=== PATIENT | male | born 1970 | race African-American/Black ===

== ENCOUNTER 2025-08-28 00:33 | Inpatient (IN) | payer OTHER ==
[~2025-08-28] VITALS: Ht 175.3 cm; Wt 95.3 kg
[2025-08-28 00:36] VITALS: O2SAT 94
[2025-08-28] MEDS: SODIUM CHLORIDE 0.9% (SEPSIS BOLUS) IV ONE (01:08)
[2025-08-28 01:16] LABS: BASOPHILS % 1.4 % (0.0-2.0); EOSINOPHILS % 3.4 % (0.0-5.0); HEMATOCRIT. 36.0 % (42.0-52.0); HEMOGLOBIN. 11.7 g/dL (14.0-18.0); LYMPHOCYTES % 12.7 % (20.0-50.0); MEAN PLATELET VOLUME 8.6 fl (7.4-10.4); MONOCYTES % 9.4 % (2.0-8.0); NEUTROPHILS % 73.1 % (40.0-76.0); PLATELET 257 x1000/uL (130-400); RED BLOOD CELL COUNT 4.19 mill/uL (4.7-6.1); RED CELL DISTRIBUTION WIDTH 14.7 % (11.6-14.6)
[2025-08-28] MEDS: PIPERACILLIN/TAZO 3.375G/50ML 50 ML IV ONE (01:16)
[2025-08-28 01:24] LABS: BG BASE EXCESS -2.8 mmol/L (-2.0-3.0); BG CARBOXYHEMOGLOBIN 0.2 % (0.5-1.5); BG DEOXYHEMOGLOBIN 1.5 % (0.0-5.0); BG FLOW(L/min) 2.00 L/min; BG FRACTION INSPIRED OXYGEN 28; BG HCO3 ACT 22.0 mmol/L (21.0-28.0); BG METHEMOGLOBIN 0.3 % (0.5-1.5); BG OXYGEN SATURATION 98.5 % (94.0-98.0); BG OXYHEMOGLOBIN 98.0 % (94.0-98.0); BG PCO2 38.2 mmHg (35.0-48.0); BG PH 7.378 (7.350-7.450); BG PO2 128.2 mmHg (83.0-108.0); BG SAMPLE SITE RIGHT RADIAL; BG TOTAL HEMOGLOBIN 11.0 g/dL (13.5-17.5); BG VENT MODE NASAL CANNULA
[2025-08-28 01:26] LABS: INR 1.0
[2025-08-28 01:29] LABS: CREATININE 3.0 mg/dL (0.6-1.3)
[2025-08-28 01:30] LABS: TROPONIN I HIGH SENSITIVITY 18 ng/L (3.0-53); UREA NITROGEN BLOOD 19 mg/dL (9-23)
[2025-08-28 01:31] LABS: ASPARTATE AMINOTRANSFERASE 27 IU/L (<34)
[2025-08-28 01:32] LABS: BILIRUBIN DIRECT < 0.1 mg/dL (<=3.0); BILIRUBIN TOTAL 0.2 mg/dL (0.1-1.0); PROTEIN TOTAL 8.2 g/dL (6.0-8.3)
[2025-08-28] MEDS: VANCOMYCIN 1G PREMIX 200 ML IV ONE (01:35)
[2025-08-28 03:38] LABS: TROPONIN I HIGH SENSITIVITY 24 ng/L (3.0-53)
[2025-08-28 04:40] VITALS: BP 150/76; PULSE 91; RESP 16; TEMP 36.9; O2SAT 100
[2025-08-28] MEDS ORDERED: IPRATROPIUM/ALBUTEROL 0.5-3(2.5)MG/3ML NEB HHN PRN (05:00)
[2025-08-28] MEDS ORDERED: DEXTROSE 50% WATER 50ML SYRINGE IV PRN (05:00)
[2025-08-28] MEDS ORDERED: DOCUSATE SODIUM 100MG CAPSULE PO PRN (05:00)
[2025-08-28] MEDS ORDERED: ACETAMINOPHEN 325MG TABLET PO PRN ×2 (05:00)
[2025-08-28] MEDS ORDERED: GUAIFENESIN 200MG/10ML SUGAR FREE UDC PO PRN (05:00)
[2025-08-28] MEDS ORDERED: MAGNESIUM/ALUMINUM HYDROXIDE/SIMETHICONE 30ML UDC PO PRN (05:00)
[2025-08-28] MEDS ORDERED: CLONIDINE 0.1MG TABLET PO PRN (05:00)
[2025-08-28] MEDS ORDERED: ONDANSETRON HCL 4MG/2ML INJ IV PRN (05:00)
[2025-08-28 05:10] VITALS: BP 150/76; PULSE 91; RESP 16; TEMP 36.974
[2025-08-28] MEDS ORDERED: LOSA25TA26 PO (05:11)
[2025-08-28] MEDS ORDERED: ATOR40TA70 PO (05:11)
[2025-08-28] MEDS ORDERED: AMLO5TAB88 PO (05:11)
[2025-08-28 06:12] LABS: CLARITY URINE CLEAR (CLEAR); COLOR URINE YELLOW (YELLOW); GLUCOSE URINE NEGATIVE (NEGATIVE); KETONES URINE NEGATIVE (NEGATIVE); LEUKOCYTE ESTERASE URINE NEGATIVE (NEGATIVE); NITRITE URINE NEGATIVE (NEGATIVE); OCCULT BLOOD URINE NEGATIVE (NEGATIVE); PH URINE 7.0 (4.5-8.0); PROTEIN URINE 1+ (NEGATIVE); SPECIFIC GRAVITY URINE 1.007 (1.005-1.030); UROBILINOGEN URINE 0.2 E.U./dL (0.2-1.0)
[2025-08-28] MEDS: INSULIN LISPRO 100 UNITS/ML SUBCUT SCH ×2 (06:28→06:40)
[2025-08-28] MEDS: BLOOD SUGAR DIAGNOSTIC STRIP TEST SCH (06:40)
[2025-08-28 07:03] LABS: *AMPHETAMINES SCREEN URINE NEGATIVE (NEGATIVE); *BENZODIAZEPINES SCREEN URINE NEGATIVE (NEGATIVE)
[2025-08-28 07:04] LABS: *BARBITURATES SCREEN URINE NEGATIVE (NEGATIVE); *COCAINE SCREEN URINE NEGATIVE (NEGATIVE); CANNABINOID URINE SCREEN NEGATIVE (NEGATIVE); ECSTASY MDMA SCREEN URINE NEGATIVE (NEGATIVE); METHADONE URINE SCREEN NEGATIVE (NEGATIVE); OPIATES URINE SCREEN NEGATIVE (NEGATIVE); PHENCYCLIDINE URINE SCREEN NEGATIVE (NEGATIVE)
[2025-08-28] MEDS ORDERED: IOHEXOL-350 100 ML BOTTLE ONE (07:13)
[2025-08-28 07:59] LABS: RBC URINE NONE SEEN /hpf (0-2); SQUAMOUS EPITHELIAL CELL URINE FEW /lpf (RARE/1+); WBC URINE 0-2 /hpf (0-2)
[2025-08-28 08:00] VITALS: BP 129/93; PULSE 80; RESP 18; TEMP 36.9; O2SAT 100
[2025-08-28 08:00] LABS: BACTERIA URINE NONE SEEN
[2025-08-28] MEDS: ENOXAPARIN 30MG/0.3ML SYR SUBCUT SCH (09:00)
[2025-08-28] MEDS: ATORVASTATIN CALCIUM 40MG TABLET PO SCH (09:45)
[2025-08-28] MEDS: AMLODIPINE 5MG TABLET PO SCH (09:46)
[2025-08-28 11:12] LABS: CLARITY URINE CLEAR (CLEAR); COLOR URINE YELLOW (YELLOW); GLUCOSE URINE NEGATIVE (NEGATIVE); KETONES URINE NEGATIVE (NEGATIVE); LEUKOCYTE ESTERASE URINE NEGATIVE (NEGATIVE); NITRITE URINE NEGATIVE (NEGATIVE); OCCULT BLOOD URINE NEGATIVE (NEGATIVE); PH URINE 6.0 (4.5-8.0); PROTEIN URINE 1+ (NEGATIVE); SPECIFIC GRAVITY URINE 1.027 (1.005-1.030); UROBILINOGEN URINE 0.2 E.U./dL (0.2-1.0)
[2025-08-28 12:00] VITALS: BP 150/76; PULSE 83; RESP 16; TEMP 36.8; O2SAT 98
[2025-08-28 12:39] LABS: BACTERIA URINE NONE SEEN; RBC URINE NONE SEEN /hpf (0-2); SQUAMOUS EPITHELIAL CELL URINE FEW /lpf (RARE/1+); WBC URINE NONE SEEN /hpf (0-2)
[2025-08-28 14:27] VITALS: BP 150/76; PULSE 83; RESP 16; TEMP 98.2
[2025-08-28] MEDS ORDERED: INSULIN GLARGINE 100 UNITS/ML SUBCUT SCH (22:00)
== END 2025-08-28 15:06 | disposition home or self-care (01) | DRG 304 ==
LOC: ER 00:33 → EDBEDREQ 04:03 → EDBEDREQTM 04:03 → ENRESERV 04:16 → 5WST 04:54
PROVIDERS: ADMIT Hospitalist; ATTEND Hospitalist
DX: I16.0 Hypertensive urgency (principal); J96.01 Acute respiratory failure with hypoxia; C34.90 Malignant neoplasm of unspecified part of unspecified bronchus or lung; N17.9 Acute kidney failure, unspecified; D32.9 Benign neoplasm of meninges, unspecified; D64.9 Anemia, unspecified; E11.22 Type 2 diabetes mellitus with diabetic chronic kidney disease; N18.9 Chronic kidney disease, unspecified; I12.9 Hypertensive chronic kidney disease with stage 1 through stage 4 chronic kidney disease, or unspecified chronic kidney disease; T45.1X5A Adverse effect of antineoplastic and immunosuppressive drugs, initial encounter; E78.5 Hyperlipidemia, unspecified; E11.21 Type 2 diabetes mellitus with diabetic nephropathy; Z92.21 Personal history of antineoplastic chemotherapy; Y92.89 Other specified places as the place of occurrence of the external cause; Z92.3 Personal history of irradiation; Z79.4 Long term (current) use of insulin; Z87.891 Personal history of nicotine dependence; Z79.899 Other long term (current) drug therapy
CPT/HCPCS: 36415; 36600; 71045; 71275; 80048; 80076; 80305; 81003; 82375; 82805; 82962; 83036; 83605; 84145; 84484; 85025; 93005; 99291; J1650; J1815; J2543; J3373; J7030; Q9967